=== PATIENT | female | born 1930 | race Caucasian/White ===

== ENCOUNTER 2016-12-19 13:32 | Emergency (ER) | payer MEDICARE, OTHER ==
--- NOTE | 2016-12-19 13:34 | EDM.PDOC ---
[id number] Complaint: HIP PAIN Time Seen by Provider: 12/19/16 13:58 Source of Information: Reports: Patient, RN Notes Reviewed History Limitations: Reports: No Limitations - History of Present Illness INITIAL COMMENTS - FREE TEXT/NARRATIVE: Patient Complains of recurrent pain radiating to the right buttock, right hip and occasionally down to the right knee for approximately 4 days. Denies any injuries, falls or other causative activity. No loss of bowel or bladder control , numbness or weakness. She took a half of a Hydrocodone tablet last night and had relief of pain and was able to sleep, but it returned again today. Severity: Moderate Right Hip Pain Score (Numeric/FACES): 4 - Related Data Allergies Allergy/AdvReac Type Severity Reaction Status Date / Time No Known Allergies Allergy Verified 12/19/16 13:45 Home Meds: Home Meds Aspirin [Jackie Chewable] 81 mg PO DAILY 10/18/13 [History] Calcium Carbonate [Calcium] 500 mg PO BID 10/18/13 [History] Losartan [Cozaar] 100 mg PO DAILY 10/18/13 [History] metFORMIN [Glucophage] 500 mg PO BID 10/18/13 [History] Hydrocodone/Acetaminophen [Hydrocodon-Acetaminophen 5-325] 0.5 tab PO Q4HR PRN 12/19/16 [History] Past Medical History Cardiovascular History: 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 Cholesterol, Hypertension Musculoskeletal History: Reports: Osteoarthritis, Osteoporosis, Other (See Below ) (significant lumbar degenerative disc disease.) Endocrine/Metabolic History: Reports: Diabetes, Type II - Past Surgical History Musculoskeletal Surgical History: Reports: Hip Replacement Social & Family History - Family History Family Medical History: Noncontributory - Tobacco Use Smoking Status *Q: Never Smoker Second Hand Smoke Exposure: No - Caffeine Use Caffeine Use: Reports: None - Recreational Drug Use Recreational Drug Use: No - Living Situation & Occupation Living situation: Reports: Alone Review of Systems - Review of Systems Review Of Systems: ROS reveals no pertinent complaints other than HPI. ED EXAM, GENERAL - Physical Exam Exam: See Below Exam Limited By: No Limitations General Appearance: Alert, WD/WN, No Apparent Distress Neck: Normal Inspection, Supple, Non-Tender, Full Range of Motion Respiratory/Chest: No Respiratory Distress, Lungs Clear, Normal Breath Sounds, No Accessory Muscle Use, Chest Non-Tender Cardiovascular: Normal Peripheral Pulses, Regular Rate, Rhythm, No Edema, No Gallop, No JVD, No Murmur, No Rub GI/Abdominal: Normal Bowel Sounds, Soft, Non-Tender, No Organomegaly, No Distention, No Abnormal Bruit, No Mass Back Exam: Other (right hip with full ROM, old surgical scar consistent with history of right total hip replacement.) Neurological: Alert, Oriented, CN II-XII Intact, Normal Cognition, Normal Gait, Normal Reflexes, No Motor/Sensory Deficits Psychiatric: Normal Affect, Normal Mood Skin Exam: Warm, Dry, Intact, Normal Color, No Rash Course - Vital Signs Last Recorded V/S: Last Vital Signs Temp 36.8 C 12/19/16 13:36 Pulse 121 H 12/19/16 13:36 Resp 18 12/19/16 13:36 BP 161/89 H 12/19/16 13:36 Pulse Ox 98 12/19/16 13:36 - Re-Assessments/Exams Free Text/Narrative Re-Assessment/Exam: 12/19/16 14:[address] abdomen/pelvis from 12/01 and MRI from 01/01 abdomen reports. Departure - Departure Time of Disposition: 14:12 Disposition: Home, Self-Care 01 Condition: good Clinical Impression: Sciatica of right side - Discharge Information Instructions: Sciatica Forms: ED Department Discharge Additional Instructions: Use your home Hydrocodone as prescribed (may take half a tablet every 4 hours as needed for pain). Use heating pad to low back, right buttock and hip as needed. Follow up in clinic with Dr. Louise if not improving.
[2016-12-19 13:45] VITALS: BP 161/89
== END 2016-12-19 14:23 | disposition home or self-care (01) ==
LOC: DL.ED 13:32
DX: M54.31 Sciatica, right side (principal); E78.00 Pure hypercholesterolemia, unspecified; I10 Essential (primary) hypertension; M15.0 Primary generalized (osteo)arthritis; M81.0 Age-related osteoporosis without current pathological fracture; E11.9 Type 2 diabetes mellitus without complications; Z79.82 Long term (current) use of aspirin; Z79.899 Other long term (current) drug therapy
CPT/HCPCS: 99282; 99283

== ENCOUNTER 2018-07-25 12:50 | Emergency (ER) | payer MEDICARE, OTHER ==
--- NOTE | 2018-07-25 13:26 | EDM.PDOC ---
ED HPI GENERAL MEDICAL PROBLEM - General Chief Complaint: Lower Extremity Injury/Pain Stated Complaint: FELL ON SIDEWALK [id number] Time Seen by Provider: 07/25/18 13:15 Source of Information: Reports: Patient, RN, RN Notes Reviewed History Limitations: Reports: No Limitations - History of Present Illness INITIAL COMMENTS - FREE TEXT/NARRATIVE: Pt presents from home by POV with c/o left hip and left shoulder pain sustained about 3 hours ago from the wind blowing her over and causing her to fall onto the sidewalk. She denies head injury, LOC, or neck pain. A man helped her get up and she drove herself home, but then after resting a while she decided to come to the ER for evaluation. She has been walking with use of a cane. Onset: Sudden Duration: Constant Location: Reports: Upper Extremity, Left, Lower Extremity, Left Quality: Reports: Ache Severity: Moderate Improves with: Reports: Immobilization, Rest Worsens with: Reports: Movement Context: Reports: Other (Fall) Associated Symptoms: Reports: No Other Symptoms Left Hip Pain Score (Numeric/FACES): 6 - Related Data Allergies Allergy/AdvReac Type Severity Reaction Status Date / Time No Known Allergies Allergy Verified 07/25/18 13:48 Home Meds: Home Meds Aspirin [Jackie Chewable] 81 mg PO DAILY 10/18/13 [History] Calcium Carbonate [Calcium] 500 mg PO BID 10/18/13 [History] Losartan [Cozaar] 100 mg PO DAILY 10/18/13 [History] metFORMIN [Glucophage] 500 mg PO BID 10/18/13 [History] Hydrocodone/Acetaminophen [Hydrocodon-Acetaminophen 5-325] 0.5 tab PO Q4HR PRN 12/19/16 [History] Past Medical History Cardiovascular History: 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 Cholesterol, 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: Musculoskeletal History: Reports: Osteoarthritis, Osteoporosis, Other (See Below ) (significant lumbar degenerative disc disease.) Endocrine/Metabolic History: Reports: Diabetes, Type II - Infectious Disease History Infectious Disease History: Reports: Chicken Pox, Measles, Mumps - Past Surgical History Musculoskeletal Surgical History: Reports: Hip Replacement Social & Family History - Family History Family Medical History: Noncontributory - Caffeine Use Caffeine Use: Reports: None - Living Situation & Occupation Living situation: Reports: , Alone Occupation: Retired Review of Systems - Review of Systems Review Of Systems: ROS reveals no pertinent complaints other than HPI. ED EXAM, GENERAL - Physical Exam Exam: See Below Exam Limited By: No Limitations General Appearance: Alert, WD/WN, No Apparent Distress Nose: Normal Inspection Throat/Mouth: Normal Inspection Head: Atraumatic, Normocephalic Neck: Normal Inspection, Supple, Non-Tender, Full Range of Motion Respiratory/Chest: No Respiratory Distress, Lungs Clear, Normal Breath Sounds, No Accessory Muscle Use, Chest Non-Tender Cardiovascular: Normal Peripheral Pulses, Regular Rate, Rhythm, No Edema, No Gallop, No JVD, No Murmur, No Rub GI/Abdominal: Normal Bowel Sounds, Soft, Non-Tender Back Exam: Normal Inspection, Full Range of Motion. No: CVA Tenderness (L), CVA Tenderness (R) Extremities: No Pedal Edema, Normal Capillary Refill, Other (Tender to palpation at left shoulder and left hip and buttock with no visible bruising, swelling, or deformity. Skin is intact.). No: Joint Swelling Neurological: Alert, Oriented, CN II-XII Intact, Normal Cognition, No Motor/ Sensory Deficits Psychiatric: Anxious Skin Exam: Warm, Dry, Intact, Normal Color, No Rash Course - Vital Signs Last Recorded V/S: Last Vital Signs Temp 36.3 C 07/25/18 12:55 Pulse 94 07/25/18 12:55 Resp 16 07/25/18 12:55 BP 133/92 H 07/25/18 12:55 Pulse Ox 98 07/25/18 12:55 - Radiology Interpretation Free Text/Narrative:: XR Left shoulder: no fractures per Rad. report. XR Left hip and pelvis: no fractures per Rad. report. Departure - Departure Time of Disposition: 13:56 Disposition: Home, Self-Care 01 Condition: Good Clinical Impression: Fall from ground level Contusion of left hip Qualifiers: Encounter type: initial encounter Qualified Code(s): S70.02XA - Contusion of left hip, initial encounter Left shoulder strain Qualifiers: Encounter type: initial encounter Qualified Code(s): S46.912A - Strain of unspecified muscle, fascia and tendon at shoulder and upper arm level, left arm , initial encounter - Discharge Information *PRESCRIPTION DRUG MONITORING PROGRAM REVIEWED*: Not Applicable *COPY OF PRESCRIPTION DRUG MONITORING REPORT IN PATIENT BROWN: Not Applicable Instructions: Contusion, [id number] Forms: ED Department Discharge Additional Instructions: Activity as tolerated. Use your home pain medication as prescribed.
[2018-07-25 13:45] VITALS: BP 133/92
--- NOTE | 2018-07-25 13:58 | CR ---
Clinical history: 87-year-old female injured fall. Interpretation: 2 views left shoulder (internal/external rotation humerus) confirm chronic arthritic changes acromioclavicular joint and subchondral cystic lesions cortex of the humeral head. No sign of left shoulder fracture or humeral dislocation. Underlying ribs unremarkable. Left lung apex clear. CONCLUSION: No fractures.
--- NOTE | 2018-07-25 14:00 | CR ---
Clinical history: 87-year-old female injured in fall. Interpretation: AP pelvis/hips and AP/frog lateral views of the left hip confirm the presence of bilateral total orthopedic hip prostheses that are satisfactorily "seeds" in the bony pelvis i.e. no sign of "loosening" or hip dislocation. Chronic multilevel lower lumbar disc disease and arthritic changes of the spine. No sign of pathologic skeletal lesion, acute fracture or dislocation pelvis or either hip. CONCLUSION: No acute fracture.
== END 2018-07-25 14:39 | disposition home or self-care (01) ==
LOC: DL.ED 12:50
DX: S46.912A Strain of unspecified muscle, fascia and tendon at shoulder and upper arm level, left arm, initial encounter (principal); S70.02XA Contusion of left hip, initial encounter; I10 Essential (primary) hypertension; E11.9 Type 2 diabetes mellitus without complications; Z79.82 Long term (current) use of aspirin; Z79.899 Other long term (current) drug therapy; W19.XXXA Unspecified fall, initial encounter
CPT/HCPCS: 73030-LT; 99283

== ENCOUNTER 2018-08-06 18:37 | Emergency (ER) | payer MEDICARE, OTHER ==
--- NOTE | 2018-08-06 18:57 | EDM.PDOC ---
ED HPI GENERAL MEDICAL PROBLEM - General Chief Complaint: Neurological Problem Stated Complaint: AMBULANCE/UNKNOWN Time Seen by Provider: 08/06/18 18:55 Source of Information: Reports: Patient, EMS History Limitations: Reports: Altered Mental Status - History of Present Illness INITIAL COMMENTS - FREE TEXT/NARRATIVE: EMS called for confused pt. pt alert but confused, was told she is in the hospital in [place]. has a daughter but unable to recall her name or where she lives. has older sister Nani lives in [place]. denies any discomforts anywhere. right now wants to think. 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: Musculoskeletal History: Reports: Osteoarthritis, Osteoporosis, Other (See Below ) (significant lumbar degenerative disc disease.) Endocrine/Metabolic History: Reports: Diabetes, Type II - Infectious Disease History Infectious Disease History: Reports: Chicken Pox, Measles, Mumps - Past Surgical History Musculoskeletal Surgical History: Reports: Hip Replacement Social & Family History - Family History Family Medical History: Noncontributory - Caffeine Use Caffeine Use: Reports: None - Living Situation & Occupation Living situation: Reports: , Alone Occupation: Retired ED ROS GENERAL - Review of Systems Review Of Systems: ROS reveals no pertinent complaints other than HPI. - Physical Exam Exam: See Below Exam Limited By: No Limitations General Appearance: Alert, WD/WN, No Apparent Distress Course - Vital Signs Last Recorded V/S: Last Vital Signs Temp 36.2 C 08/06/18 18:44 Pulse 84 08/06/18 18:44 Resp 19 08/06/18 18:44 BP 143/65 H 08/06/18 18:44 Pulse Ox 100 01/20/19 18:44 - Orders/Labs/Meds Orders: Active Orders 24 hr Category Date Time Status EKG Documentation Completion [RC] STAT Care 08/06/18 18:53 Active CULTURE URINE [RM] Stat Lab 08/06/18 19:46 Received Labs: Laboratory Tests 08/06/18 08/06/18 08/06/18 Range/Units 18:39 19:00 19:00 WBC 7.8 (5.0-10.0) 10^3/uL RBC 4.03 L (4.2-5.4) 10^6/uL Hgb 11.9 L (12.0-16.0) g/dL Hct 36.2 L (37.0-47.0) % MCV 89.8 (80-100) fL MCH 29.5 (27.0-34.0) pg MCHC 32.9 L (33.0-35.0) g/dL Plt Count 231 (150-450) 10^3/uL Neut % (Auto) 88.2 H (42.2-75.2) % Lymph % (Auto) 10.5 L (20.5-50.1) % [place] % (Auto) 1.3 L (2-8) % Eos % (Auto) 0.0 L (1.0-3.0) % Baso % (Auto) 0.0 (0.0-1.0) % Sodium 135 (135-145) mmol/L Potassium 3.8 (3.6-5.0) mmol/L Chloride 99 L (101-111) mmol/L Carbon Dioxide 24.0 (21.0-31.0) mmol/L Anion Gap 15.8 BUN 18 (7-18) mg/dL Creatinine 0.7 (0.6-1.3) mg/dL Est Cr Clr Drug Dosing TNP Estimated GFR (MDRD) > 60 BUN/Creatinine Ratio 25.71 Glucose 232 H (74-105) mg/dL POC Glucose 200 H (83-110) mg/dl Calcium 9.3 (8.4-10.2) mg/dl Total Bilirubin 1.1 H (0.2-1.0) mg/dL AST 20 (10-42) IU/L ALT 14 (10-60) IU/L Alkaline Phosphatase 71 (42-121) IU/L Troponin I < 0.02 (0.00-0.02) ng/ml Total Protein 7.0 (6.7-8.2) g/dl Albumin 3.7 (3.2-5.5) g/dl Globulin 3.3 Albumin/Globulin Ratio 1.12 Urine Color (YELLOW) Urine Appearance (CLEAR) Urine pH (5.0-9.0) Ur Specific [place] (1.005-1.030) Urine Protein (NEGATIVE) Urine Glucose (UA) (NEGATIVE) Urine Ketones (NEGATIVE) Urine Occult Blood (NEGATIVE) Urine Nitrite (NEGATIVE) Urine Bilirubin (NEGATIVE) Urine Urobilinogen (0.2-1.0) mg/dL Ur Leukocyte Esterase (NEGATIVE) Urine RBC /HPF Urine WBC (0-5/HPF) /HPF Ur Epithelial Cells /HPF Amorphous Sediment (0/HPF) /HPF Urine Bacteria (0-FEW/HPF) /HPF 08/06/18 Range/Units 19:46 WBC (5.0-10.0) 10^3/uL RBC (4.2-5.4) 10^6/uL Hgb (12.0-16.0) g/dL Hct (37.0-47.0) % MCV (80-100) fL MCH (27.0-34.0) pg MCHC (33.0-35.0) g/dL Plt Count (150-450) 10^3/uL Neut % (Auto) (42.2-75.2) % Lymph % (Auto) (20.5-50.1) % [place] % (Auto) (2-8) % Eos % (Auto) (1.0-3.0) % Baso % (Auto) (0.0-1.0) % Sodium (135-145) mmol/L Potassium (3.6-5.0) mmol/L Chloride (101-111) mmol/L Carbon Dioxide (21.0-31.0) mmol/L Anion Gap BUN (7-18) mg/dL Creatinine (0.6-1.3) mg/dL Est Cr Clr Drug Dosing Estimated GFR (MDRD) BUN/Creatinine Ratio Glucose (74-105) mg/dL POC Glucose (83-110) mg/dl Calcium (8.4-10.2) mg/dl Total Bilirubin (0.2-1.0) mg/dL AST (10-42) IU/L ALT (10-60) IU/L Alkaline Phosphatase (42-121) IU/L Troponin I (0.00-0.02) ng/ml Total Protein (6.7-8.2) g/dl Albumin (3.2-5.5) g/dl Globulin Albumin/Globulin Ratio Urine Color Yellow (YELLOW) Urine Appearance Slightly cloudy (CLEAR) Urine pH 6.5 (5.0-9.0) Ur Specific [place] 1.025 (1.005-1.030) Urine Protein 30 H (NEGATIVE) Urine Glucose (UA) 500 H (NEGATIVE) Urine Ketones 80 H (NEGATIVE) Urine Occult Blood Negative (NEGATIVE) Urine Nitrite Negative (NEGATIVE) Urine Bilirubin Negative (NEGATIVE) Urine Urobilinogen 0.2 (0.2-1.0) mg/dL Ur Leukocyte Esterase Trace H (NEGATIVE) Urine RBC 0-5 /HPF Urine WBC 5-10 H (0-5/HPF) /HPF Ur Epithelial Cells Moderate H /HPF Amorphous Sediment Rare (0/HPF) /HPF Urine Bacteria Few (0-FEW/HPF) /HPF - Re-Assessments/Exams Free Text/Narrative Re-Assessment/Exam: 08/06/18 20:42 re-exam; pt states wants to go home. friend arrived and results discussed with her, states she can stay with pt tonight and will contact family in am for future placement. 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 Qualifiers: Alzheimer's disease onset: early-onset Qualified Code(s): G30.0 - Alzheimer's disease with early onset; F02.81 - Dementia in other diseases classified elsewhere with behavioral disturbance - Discharge Information Instructions: Alzheimer Disease Caregiver Guide, [id number] Forms: ED Department Discharge Additional Instructions: 1) see family doctor tomorrow for placement 2) return if there is any change or concern - My Orders Last 24 Hours: My Active Orders 08/06/18 18:53 EKG Documentation Completion [RC] STAT 08/06/18 19:46 CULTURE URINE [RM] Stat - Assessment/Plan Last 24 Hours: My Active Orders 08/06/18 18:53 EKG Documentation Completion [RC] STAT 08/06/18 19:46 CULTURE URINE [RM] Stat
[2018-08-06 18:59] VITALS: BP 143/65
[2018-08-06 19:27] LABS: ANION GAP 15.8; CHLORIDE,CL 99 mmol/L (101-111); SODIUM,NA 135 mmol/L (135-145)
== END 2018-08-06 20:59 | disposition home or self-care (01) ==
LOC: DL.ED 18:37
DX: G30.0 Alzheimer's disease with early onset (principal); F02.81 Dementia in other diseases classified elsewhere, unspecified severity, with behavioral disturbance; I10 Essential (primary) hypertension; Z79.82 Long term (current) use of aspirin; Z79.899 Other long term (current) drug therapy
CPT/HCPCS: 36415; 70450; 71045; 80053; 81001; 82962; 84484; 85025; 87086; 87088; 87186; 93005; 99285

== ENCOUNTER 2018-09-16 07:55 | Emergency (ER) | payer MEDICARE, OTHER ==
--- NOTE | 2018-09-16 08:10 | EDM.PDOC ---
ED HPI GENERAL MEDICAL PROBLEM - General Chief Complaint: Skin Complaint Stated Complaint: CAT SCRATCHED HER [id number] Time Seen by Provider: 09/16/18 08:10 Source of Information: Reports: Patient History Limitations: Reports: No Limitations - History of Present Illness INITIAL COMMENTS - FREE TEXT/NARRATIVE: She comes emergency department today with complaints of a injury to the dorsal aspect of her left hand from her cat. Just prior to arrival this morning the cat scratched her on the dorsal aspect of the left hand sustaining a rather large superficial skin tear/laceration. Her tetanus is up to date and cats immunizations are as well. 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: Musculoskeletal History: Reports: Osteoarthritis, Osteoporosis, Other (See Below ) (significant lumbar degenerative disc disease.) Endocrine/Metabolic History: Reports: Diabetes, Type II - Infectious Disease History Infectious Disease History: Reports: Chicken Pox, Measles, Mumps - Past Surgical History Musculoskeletal Surgical History: Reports: Hip Replacement Social & Family History - Family History Family Medical History: Noncontributory - Caffeine Use Caffeine Use: Reports: None - Living Situation & Occupation Living situation: Reports: , Alone Occupation: Retired ED ROS GENERAL - Review of Systems Review Of Systems: ROS reveals no pertinent complaints other than HPI. ED EXAM, SKIN/RASH Exam: See Below Exam Limited By: No Limitations General Appearance: Alert, WD/WN Peripheral Pulses: 2+: Radial (L), Radial (R) Skin: Warm, Dry, Normal Color Location, Skin: Lower Extremity, Left (On the dorsal surface of the left hand over the mid metacarpals there is a transverse very superficial skin tear/ laceration that is approximately 4 cm in length. It well approximated. Does not extend into the subcutaneous tissue. She can flex and extend appropriately all the joints of the left hand. There is no signs of infection.) Course - Re-Assessments/Exams Free Text/Narrative Re-Assessment/Exam: 09/16/18 08:13 The wound was cleansed with chlorhexidine. Benzoin tincture and Steri-Strips were applied with good skin approximation. We will send her home on Augmentin as this was a cat scratch. Watch for any signs of infections or other problems. Patients With a splinter questions are answered. Departure - Departure Time of Disposition: 08:13 Disposition: Home, Self-Care 01 Clinical Impression: Cat scratch of hand Qualifiers: Encounter type: initial encounter Laterality: left Qualified Code(s): S60.512A - Abrasion of left hand, initial encounter; W55.03XA - Scratched by cat, initial encounter - Discharge Information Instructions: Stitches, Justina, or Adhesive Wound Closure, [id number] Additional Instructions: Tylenol and or ibuprofen as needed for pain. Steri-strips, keep in place until they fall off. Trim the edges as they release from the hand with a finger nail clipper. Augmentin 1 tab twice daily for the next 5 days. RX given to the patient. Return to the ED if new or worsening symptoms. Follow up with primary care in the next week if any concerns. - Assessment/Plan Assessment:: Cat scratch laceration Steri-strips Plan: Tylenol and or ibuprofen as needed for pain. Steri-strips, keep in place until they fall off. Trim the edges as they release from the hand with a finger nail clipper. Augmentin 1 tab twice daily for the next 5 days. RX given to the patient. Return to the ED if new or worsening symptoms. Follow up with primary care in the next week if any concerns.
[2018-09-16] MEDS ORDERED: Amoxicillin/Clavulanate K 875-125 MG Tab PO ONE (08:11)
[2018-09-16 08:36] VITALS: BP 153/86
== END 2018-09-16 08:32 | disposition home or self-care (01) ==
LOC: DL.ED 07:55
DX: S60.512A Abrasion of left hand, initial encounter (principal); I10 Essential (primary) hypertension; E11.9 Type 2 diabetes mellitus without complications; E78.00 Pure hypercholesterolemia, unspecified; Z79.82 Long term (current) use of aspirin; Z79.84 Long term (current) use of oral hypoglycemic drugs; Z79.899 Other long term (current) drug therapy; W55.03XA Scratched by cat, initial encounter
CPT/HCPCS: 99282; A9270